=== PATIENT | male | born 2000 | race Caucasian/White ===

== ENCOUNTER 2019-02-23 16:15 | Emergency (ER) | payer OTHER ==
[~2019-02-23] VITALS: Ht 175.2 cm; Wt 75.7 kg
[2019-02-23] MEDS ORDERED: IBU600 M1 PO (18:41)
== END 2019-02-23 18:54 | disposition home or self-care (01) ==
LOC: ED 16:15
DX: M54.9 Dorsalgia, unspecified (principal); R20.0 Anesthesia of skin; F17.210 Nicotine dependence, cigarettes, uncomplicated; Z88.1 Allergy status to other antibiotic agents; X50.0XXA Overexertion from strenuous movement or load, initial encounter; Y93.89 Activity, other specified; Y92.512 Supermarket, store or market as the place of occurrence of the external cause; Y99.8 Other external cause status

== ENCOUNTER 2019-12-16 13:28 | Emergency (ER) | payer BC ==
[~2019-12-16] VITALS: Wt 76.2 kg
[~2019-12-16 13:28] MED LIST: IBU600 M1 PO
== END 2019-12-16 17:39 | disposition home or self-care (01) ==
LOC: ED 13:28
DX: Z01.84 Encounter for antibody response examination (principal); Z79.899 Other long term (current) drug therapy; Z20.828 Contact with and (suspected) exposure to other viral communicable diseases

== ENCOUNTER 2022-09-27 19:36 | Emergency (ER) | payer OTHER, BC ==
[~2022-09-27] VITALS: Ht 175.2 cm; Wt 82.6 kg
== END 2022-09-27 20:23 | disposition home or self-care (01) ==
LOC: ED 19:36
DX: S06.0X1A Concussion with loss of consciousness of 30 minutes or less, initial encounter (principal); R41.3 Other amnesia; Z88.1 Allergy status to other antibiotic agents; Z91.040 Latex allergy status; Z88.8 Allergy status to other drugs, medicaments and biological substances; W22.8XXA Striking against or struck by other objects, initial encounter; Y93.89 Activity, other specified; Y92.89 Other specified places as the place of occurrence of the external cause; Y99.0 Civilian activity done for income or pay

== ENCOUNTER 2023-09-16 11:35 | Emergency (ER) | payer BC ==
[~2023-09-16] VITALS: Ht 175.2 cm; Wt 91.6 kg
[2023-09-16] MEDS ORDERED: Sulfamethoxazole/Trimethopri 1 TAB TAB PO ONE (12:00)
[2023-09-16] MEDS ORDERED: CEPHALEXIN 500 MG CAP PO ONE (12:00)
[2023-09-16] MEDS ORDERED: SEPTDS PO (12:06)
[2023-09-16] MEDS ORDERED: CEPHALEXIN500 M1 PO (12:06)
[2023-09-16] MEDS ORDERED: PREDNISONE20 M1 PO (12:12)
[2023-09-16] MEDS ORDERED: predniSONE 20 MG TAB PO ONE (12:15)
== END 2023-09-16 12:20 | disposition home or self-care (01) ==
LOC: ED 11:35
DX: L23.7 Allergic contact dermatitis due to plants, except food (principal); N49.2 Inflammatory disorders of scrotum; Z88.0 Allergy status to penicillin; Z88.1 Allergy status to other antibiotic agents